=== PATIENT | male | born 1955 | race Caucasian/White ===

== ENCOUNTER 2018-06-12 11:17 | Observation (INO) | payer OTHER ==
[2018-06-12] MEDS ORDERED: METOCLOPRAMIDE HCL INJECTION 10 MG/2 ML VIAL IVPUSH ONE (12:04)
[2018-06-12] MEDS ORDERED: ONDANSETRON *ODT* 4 MG TABLET SL ONE (12:04)
[2018-06-12] MEDS ORDERED: METOCLOPRAMIDE HCL INJECTION 10 MG/2 ML VIAL ONE (12:05)
[2018-06-12] MEDS ORDERED: ONDANSETRON 4 MG/2 ML VIAL ONE (12:05)
[2018-06-12] MEDS ORDERED: ASPIRIN 81 MG CHEWABLE TABLETS PO ONE (12:08)
--- NOTE | 2018-06-12 12:09 | PDOC ---
*Physical Exam - Vital Signs Last Vital Signs Temp Pulse Resp BP Pulse Ox 97.2 F L 66 26 H 144/90 100 06/12/18 11:21 06/12/18 11:21 06/12/18 11:21 06/12/18 11:21 06/12/18 11:21 ED Treatment Course - LABORATORY CBC & Chemistry Diagram: 06/13/18 06:00 06/13/18 06:00 Medical Decision Making - Medical Decision Making 06/15/18 01:31 Mr Valdez presents to the ER with a complaint of headache and vertigo Pt has a h/o nephrolithiasis and chronic back pain. He reports sudden onset of left-sided headache, feeling of numbness in left upper extremity with nausea and dizziness. No visual changes No chest pain Patient denies any weakness to extremities. CT performed - negative Symptoms improved in the ER Call placed to Dr. Wiley Will place on observation for r/o TIA Pt seen by Midlevel Provider under my direct supervision Pt interviewed and examined Ancillary studies reviewed I agree with plan as outlined by Midlevel Provider *DC/Admit/Observation/Transfer Diagnosis at time of Disposition: TIA (transient ischemic attack) - Discharge Dispostion Disposition: HOME Condition at time of disposition: Stable - Referrals - Patient Instructions - Post Discharge Activity
[2018-06-12] MEDS: SODIUM CHLORIDE 1,000 ML IV SCH (12:19)
[2018-06-12] MEDS ORDERED: ASPIRIN 81 MG CHEWABLE TABLETS ONE (12:27)
[2018-06-12 12:29] LABS: BASO % 0.4 % (0-2.0); EOS % 1.7 % (0-4.5); HEMATOCRIT 42.7 % (35.4-49); MCH 29.8 pg (25.7-33.7); MEAN CELL VOLUME 85.1 fl (80-96); MEAN PLT VOLUME 7.6 fl (7.5-11.1); MONO % 7.5 % (3.8-10.2); NEUT % 46.4 % (42.8-82.8); PLATELET COUNT 321 K/MM3 (134-434); RBC 5.01 M/mm3 (4.00-5.60); RDW 13.4 % (11.9-15.9); WHITE BLOOD COUNT 8.8 K/mm3 (4.0-10.0)
--- NOTE | 2018-06-12 12:32 | PDOC ---
History of Present Illness - General Chief Complaint: CVA/TIA Stated Complaint: CHEST PAIN Time Seen by Provider: 06/12/18 11:41 History Source: Patient Exam Limitations: Clinical Condition - History of Present Illness Initial Comments: 06/12/18 10:50 Patient with no past medical history present with complaint of sudden onset of left-sided headache, feeling of numbness in left upper extremity with nausea and dizziness. Patient denies blurry vision, chest pain, shortness of breath. Patient denies any weakness to extremities. Patient denied take anything for symptoms. Denies past medical history of headaches or migraines. Timing/Duration: reports: 4-6 hours Severity: Yes: mild Associated Symptoms: reports: nausea/vomiting, vision changes, weakness. denies : confusion, fatigue, fever/chills, insomnia, loss of consciousness, muscle spasms, paresthesia, ringing in ears, seizures, sleepy, slurred speech, tingling in legs/feet, trouble walking Past History - Past Medical History Allergies/Adverse Reactions: Allergies Allergy/AdvReac Type Severity Reaction Status Date / Time No Known Allergies Allergy Verified 06/12/18 11:20 Home Medications: Ambulatory Orders NK [No Known Home Medication] 06/12/18 Cardiac Disorders: No Hx Myocardial Infarction: No CVA: No COPD: No Psychiatric Problems: No Seizures: No Thyroid Disease: No - Immunization History Immunization Up to Date: Yes - Suicide/Smoking/Psychosocial Hx Smoking History: Never smoked Hx Alcohol Use: No Drug/Substance Use Hx: No Neuro Specific PMHX - Complaint Specific PMHX Glaucoma: No Herniated Disk: No Migraine: No TIA: No Review of Systems - Review of Systems Able to Perform ROS?: Yes Is the patient limited Kyrgyz proficient: No Constitutional: Yes: Weakness. No: Chills, Fever HEENTM: Yes: Symptoms Reported, See HPI, Blurred Vision (left eye). No: Eye Pain, Tearing, Double Vision, Cataracts, Ear Pain, Ocular Prothesis, Ear Discharge, Nose Pain, Nose Congestion, Tinnitus, Nose Bleeding, Hearing Loss, Throat Pain, Throat Swelling, Mouth Pain, Dental Problems, Difficulty Swallowing , Mouth Swelling, Other Respiratory: No: Symptoms reported, See HPI, Cough, Orthopnea, Shortness of Breath, SOB with Exertion, SOB at Rest, Stridor, Wheezing, Productive cough, Hemoptysis, Other Cardiac (ROS): No: Symptoms Reported, See HPI, Chest Pain, Edema, Irregular Heart Rate, Lightheadedness, Palpitations, Syncope, Chest Tightness, Other ABD/GI: Yes: See HPI, Nausea. No: Blood Streaked Bowels, Vomiting, Abdominal cramping Integumentary: No: Symptoms Reported Neurological: Yes: See HPI, Headache, Weakness (left side of face and LUE), Dizziness. No: Numbness, Paresthesia, Seizure, Tingling All Other Systems: Reviewed and Negative *Physical Exam - Vital Signs Last Vital Signs Temp Pulse Resp BP Pulse Ox 97.2 F L 66 26 H 144/90 100 06/12/18 11:21 06/12/18 11:21 06/12/18 11:21 06/12/18 11:21 06/12/18 11:21 - Physical Exam Comments: 06/12/18 13:52 GENERAL: Well developed, well nourished. Awake and alert. No acute distress. HEENT: Normocephalic, atraumatic. PERRLA, EOMI. No conjunctival pallor. Sclera are non-icteric. Moist mucous membranes. Oropharynx is clear. NECK: Supple. Full ROM. CARDIOVASCULAR: Regular rate and rhythm. No murmurs, rubs, or gallops. Distal pulses are 2+ and symmetric. PULMONARY: No evidence of respiratory distress. Lungs clear to auscultation bilaterally. No wheezing, rales or rhonchi. ABDOMINAL: Soft. Non-tender. Non-distended. No rebound or guarding. No organomegaly. Normoactive bowel sounds. MUSCULOSKELETAL Normal range of motion at all joints. EXTREMITIES: No cyanosis. No clubbing. No edema. No calf tenderness. SKIN: Warm and dry. Normal capillary refill. No rashes. No jaundice. NEUROLOGICAL: Alert, awake, appropriate. Gait is normal without ataxia. Normal facial symmetry. No neuro deficit on exam. No facial drooling. PSYCHIATRIC: Cooperative. Good eye contact. Appropriate mood General Appearance: Yes: Nourished, Appropriately Dressed, Mild Distress NIH Stroke Scale - Initial Evaluation Level of consciousness: Alert Ask patient the month and their age: Answers both correctly Ask patient to open & close eyes; make fist and let go: Obeys both correctly Best gaze (horizontal eye movement): Normal Visual field testing: No visual field loss Facial paresis (Show teeth/raise eyebrows/close eyes tight): Normal symmetrical movement Motor Function: Left Arm: Normal Motor Function: Right Arm: Normal (extends arm 90 (or 45) degrees for 10 seconds without drift Motor Function: Left Leg: Normal (extends leg 30 degrees for 5 seconds without drift) Motor Function: Right Leg: Normal (extends leg 30 degrees for 5 seconds without drift) Limb Ataxia: No ataxia Sensory(Use pinprick test arms,legs,trunk,face/side to side): Normal Best language (Describe picture, name items, read sentences): No Aphasia Dysarthria (read several words): Normal articulation Extinction and Inattention: No abnormality - Total Score NIH Stroke Scale Score: 0 tPA Exclusion Checklist 0-3hr - Thrombolytic Therapy Candidate Is the patient eligible for Thrombolytic Therapy?: Yes - Exclusion Criteria 0-3hr SBP greater than 185 or DBP greater than 110mmHg despite tx: No Recent IC/spinal surgery,head trauma or stroke w/in last 3mo: No Hx of previous IC hemorrhage, IC neoplasm, AVM or aneurysm: No Active internal bleeding: No Blding diathesis(low plt ct, inc PTT,INR>1.7 or use of NOAC): No Symptoms suggest subarachnoid hemorrhage: No CT demonstrates multilobar infarct(>1/3 cerebral hemiphere): No Arterial puncture at noncompressible site in previous 7 days: No Blood glucose concentration less than 50mg/dL (2.7mmol/L): No - Relative Exclusion Criteria 0-3h Life expectancy <1yr/severe co-morbid illness/Y[employer] on admit: No : No Patient/family refused: No Rapid improvement: Yes Stroke severity too mild: Yes Recent acute NH (w/in previous 3 months): No Seizure at onset with postictal residual neuro impairments: No Major surgery or serious trauma w/in previous 14 days: No Recent GI or hemorrhage (w/in previous 21 days): No TIA Risk Factors - ABCD Score Age: Age = or > 60 Duration: TIA duration = or > 60min Diabetes: No Moderate Sedation - Procedure Monitoring Vital Signs: Procedure Monitoring Vital Signs Temperature 97.2 F L 06/12/18 11:21 Pulse Rate 66 06/12/18 11:21 Respiratory Rate 26 H 06/12/18 11:21 Blood Pressure 144/90 06/12/18 11:21 O2 Sat by Pulse Oximetry (%) 100 06/12/18 11:21 Heart Score/ECG Review - History History: Slightly suspicious Critical Care Time/MDM Note - Medical Decision Making Note: 06/12/18 13:54 Patient with no past medical history present with complaint of TIAs symptoms since this morning with feeling of left-sided numbness and headache with nausea vomiting. Clinical exam significant for 2 episodes of vomiting on presentation. Normal neuro exam with no facial asymmetry all evidence of stroke on exam. Head CT shows no acute infarct or hemorrhage. EKG shows normal sinus rhythm. Chemistry labs shows no acute pathology, CBC and cardiac labs normal. Neurology Dr. Wiley consulted who requested do head MRI given no past medical history of sudden onset of symptoms. Patient to be admitted for observation as per Neurologist Dr. Wiley 06/12/18 14:53 medicine consulted with agrees to admit patient for observation and will come done to see patient. Patient admitted to Tele observation as per medicine *DC/Admit/Observation/Transfer Diagnosis at time of Disposition: TIA (transient ischemic attack) - Discharge Dispostion Condition at time of disposition: Stable Decision to Admit order: Yes Decision to Admit order Date/Time: 06/12/18 13:57 Admit for obs as per Dr. Wiley - Referrals - Patient Instructions - Post Discharge Activity
--- NOTE | 2018-06-12 12:52 | EKG ---
Test Reason : Blood Pressure : / mmHG Vent. Rate : 066 BPM Atrial Rate : 066 BPM P-R Int : 140 ms QRS Dur : 082 ms QT Int : 426 ms P-R-T Axes : 021 -28 037 degrees QTc Int : 446 ms NORMAL SINUS RHYTHM NORMAL ECG NO PREVIOUS ECGS AVAILABLE Confirmed by KASI VELA, GUZMAN ([id number]) on 06/12/2018 12:52:26 PM Referred By: Confirmed By:GUZMAN VILLASEÑOR MD
[2018-06-12 12:57] LABS: INR 0.96 (0.83-1.09); PROTHROMBIN TIME (PATIENT) 11.3 SEC (9.7-13.0)
[2018-06-12 12:58] LABS: ALK PHOS 70 U/L (45-117); ANION GAP 8 MMOL/L (8-16); BILIRUBIN,TOTAL 0.4 mg/dL (0.2-1); BLOOD UREA NITROGEN 15 mg/dL (7-18); CALCIUM 9.3 mg/dL (8.5-10.1); CHLORIDE 106 mmol/L (98-107); CHOLESTEROL 270 mg/dL (50-200); CO2 24 mmol/L (21-32); CREATININE 0.7 mg/dL (0.55-1.3); GLUCOSE,RANDOM 89 mg/dL (74-106); HDL CHOLESTEROL 40 mg/dL (40-60); POTASSIUM 3.6 mmol/L (3.5-5.1); SGOT/AST 18 U/L (15-37); SGPT/ALT 28 U/L (13-61); SODIUM 138 mmol/L (136-145); TOT PROT 7.3 g/dl (6.4-8.2); TRIGLYCERIDES 208 mg/dL (0-150)
[2018-06-12 13:00] LABS: ACTIVATED PTT 30.4 SECONDS (25.2-36.5)
[2018-06-12 13:59] LABS: URINE APPEARANCE CLOUDY; URINE BILIRUBIN NEGATIVE (<2.0 mg/dL); URINE COLOR YELLOW; URINE GLUCOSE (UA) NEGATIVE (NEGATIVE); URINE KETONE NEGATIVE (NEGATIVE); URINE LEUK ESTERASE NEGATIVE (NEGATIVE); URINE NITRITE NEGATIVE (NEGATIVE); URINE PROTEIN NEGATIVE (NEGATIVE); URINE UROBILINOGEN NEGATIVE mg/dL (0.2-1.0)
--- NOTE | 2018-06-12 16:08 | PN ---
Teaching Attending Note Name of Resident: Darshana Adams ATTENDING PHYSICIAN STATEMENT I saw and evaluated the patient. I reviewed the resident's note and discussed the case with the resident. I agree with the resident's findings and plan as documented. SUBJECTIVE: Patient is a 63yo male with PMHx of nephrolithiasis, chronic back pain, who presents to the ED c/o generalized TRUJILLO, and L face and LUE numbness/tingling that started this AM. No fever or chills, no shortness of breath. OBJECTIVE: Vital Signs Temperature 97.2 F L 06/12/18 11:21 Pulse Rate 66 06/12/18 11:21 Respiratory Rate 26 H 06/12/18 11:21 Blood Pressure 144/90 06/12/18 11:21 O2 Sat by Pulse Oximetry (%) 100 06/12/18 11:21 GENERAL: Pleasant. Awake, alert, and fully oriented, in no acute distress. HEAD: Normal with no signs of trauma. EYES: Pupils equal, round and reactive to light, extraocular movements intact, sclera anicteric, conjunctiva clear. EARS, NOSE, THROAT: Ears normal, oropharynx clear without exudates. Moist mucous membranes. NECK: Normal range of motion, supple LUNGS: Breath sounds equal, clear to auscultation bilaterally. No wheezes, and no crackles. No accessory muscle use. HEART: Regular rate and rhythm, normal S1 and S2 without murmur, rub or gallop. ABDOMEN: Soft, nontender, not distended, normoactive bowel sounds. +reducible umbilical hernia MUSCULOSKELETAL: Normal range of motion at all joints. No bony deformities or tenderness. No CVA tenderness. EXTREMITIES: 2+ radial pulses, warm, well-perfused. No cyanosis. No clubbing. No peripheral edema. NEUROLOGICAL: Cranial nerves II-XII intact. Normal speech. Normal gait. 5/5 motor strength UE, LE. sensation intact PSYCHIATRIC: Cooperative. Good eye contact. SKIN: Warm, dry, normal turgor CBCD WBC 8.8 K/mm3 (4.0-10.0) 06/12/18 12:14 RBC 5.01 M/mm3 (4.00-5.60) 06/12/18 12:14 Hgb 15.0 GM/dL (11.7-16.9) 06/12/18 12:14 Hct 42.7 % (35.4-49) 06/12/18 12:14 MCV 85.1 fl (80-96) 06/12/18 12:14 MCHC 35.0 g/dl (32.0-35.9) 06/12/18 12:14 RDW 13.4 % (11.9-15.9) 06/12/18 12:14 Plt Count 321 K/MM3 (134-434) 06/12/18 12:14 MPV 7.6 fl (7.5-11.1) 06/12/18 12:14 CMP Sodium 138 mmol/L (136-145) 06/12/18 12:14 Potassium 3.6 mmol/L (3.5-5.1) 06/12/18 12:14 Chloride 106 mmol/L (98-107) 06/12/18 12:14 Carbon Dioxide 24 mmol/L (21-32) 06/12/18 12:14 Anion Gap 8 MMOL/L (8-16) 06/12/18 12:14 BUN 15 mg/dL (7-18) 06/12/18 12:14 Creatinine 0.7 mg/dL (0.55-1.3) 06/12/18 12:14 Creat Clearance w eGFR > 60 (>60) 06/12/18 12:14 Random Glucose 89 mg/dL (74-106) 06/12/18 12:14 Calcium 9.3 mg/dL (8.5-10.1) 06/12/18 12:14 Total Bilirubin 0.4 mg/dL (0.2-1) 06/12/18 12:14 AST 18 U/L (15-37) 06/12/18 12:14 ALT 28 U/L (13-61) 06/12/18 12:14 Alkaline Phosphatase 70 U/L (45-117) 06/12/18 12:14 Total Protein 7.3 g/dl (6.4-8.2) 06/12/18 12:14 Albumin 4.0 g/dl (3.4-5.0) 06/12/18 12:14 CARDIAC ENZYMES Creatine Kinase 104 U/L (26-308) 06/12/18 12:14 Troponin I < 0.02 ng/ml (0.00-0.05) 06/12/18 12:14 Current Medications Generic Name Dose Route Start Last Admin Trade Name Veronica PRN Reason Stop Dose Admin Sodium Chloride 1,000 mls @ 42 mls/hr 06/12/18 11:45 06/12/18 12:19 Normal Saline - IV 42 mls/hr ASDIR GALEN Administration Home Medications Medication Instructions Recorded NK [No Known Home Medication] 06/12/18 CTH: without abnormality - no bleed or infarct EKG: NSR, rate 66bpm, no St-T wave changes. qtc 446ms ASSESSMENT AND PLAN: 63 y/o M with PMH nephrolithiasis, chronic back pain, who presents to the ED c/ o generalized TRUJILLO, and L face and LUE numbness/tingling that started this AM. As per pt, his sx started at 9:30AM when he was at work. States that he was walking up the driveway at his office for a coffee break when he felt dizzy. #Acute TIA r/o CVA :will start asa 162mg qd, lipitor 80mg qd , symptoms resolved completely , ECHO, carotids, brain MRI, neuro consult. # HLD: on Lipitor :cholesterol/fat controlled diet # Dizziness: IVF , most likely due to diarrhea # Diarrhea : IVF , monitor DVT: early ambulation, SCD's
--- NOTE | 2018-06-12 16:55 | HP ---
CHIEF COMPLAINT: TRUJILLO, L face, LUE numbness/tingling PCP: Dr. Tucker HISTORY OF PRESENT ILLNESS: 63 y/o M with PMH nephrolithiasis, chronic back pain, who presents to the ED c/ o generalized TRUJILLO, and L face and LUE numbness/tingling that started this AM. As per pt, his sx started at 9:30AM when he was at work. States that he was walking up the driveway at his office for a coffee break when he felt increasingly dizzy. Was unable to keep his balance and began to feel nauseated. During this time, he endorsed generalized TRUJILLO, and L face and LUE numbness and tingling as well. For this reason, he came to the ED for evaluation. Endorses recent colonoscopy 3 weeks ago where he had 7 polyps removed. Also with few episodes of loose BM's (without blood), as well as multiple eps of visual issues where his sight became blurry for 1-2 mins each. Otherwise, without fever , chills, SOB, chest pain or pressure, or changes in urinary function. 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 unable to quantify past amount of drinks Drugs: denies Family History: mother - breast CA, father- prostate CA, brother - testic CA, sister- brain tumor, father - afib Allergies No Known Allergies Allergy (Verified 06/12/18 11:20) HOME MEDICATIONS: Home Medications Medication Instructions Recorded NK [No Known Home Medication] 06/12/18 REVIEW OF SYSTEMS CONSTITUTIONAL: Absent: fever, chills, diaphoresis, generalized weakness, malaise, loss of appetite, weight change HEENT: Absent: rhinorrhea, nasal congestion, throat pain, throat swelling, difficulty swallowing, mouth swelling, ear pain, eye pain, visual changes CARDIOVASCULAR: Absent: chest pain, syncope, palpitations, irregular heart rate, lightheadedness , peripheral edema RESPIRATORY: Absent: cough, shortness of breath, dyspnea with exertion, orthopnea, wheezing, stridor, hemoptysis GASTROINTESTINAL: Absent: abdominal pain, abdominal distension, nausea, vomiting, diarrhea, constipation, melena, hematochezia GENITOURINARY: Absent: dysuria, frequency, urgency, hesitancy, hematuria, flank pain, genital pain MUSCULOSKELETAL: Absent: myalgia, arthralgia, joint swelling, back pain, neck pain SKIN: Absent: rash, itching, pallor HEMATOLOGIC/IMMUNOLOGIC: Absent: easy bleeding, easy bruising, lymphadenopathy, frequent infections ENDOCRINE: Absent: unexplained weight gain, unexplained weight loss, heat intolerance, cold intolerance NEUROLOGIC: +LUE numbness/tingling, TRUJILLO Absent: headache, focal weakness or paresthesias, dizziness, unsteady gait, seizure, mental status changes, bladder or bowel incontinence PSYCHIATRIC: Absent: anxiety, depression, suicidal or homicidal ideation, hallucinations. PHYSICAL EXAMINATION Vital Signs - 24 hr 06/12/18 11:21 Temperature 97.2 F L Pulse Rate 66 Respiratory 26 H Rate Blood Pressure 144/90 O2 Sat by Pulse 100 Oximetry (%) GENERAL: Pleasant. Awake, alert, and fully oriented, in no acute distress. HEAD: Normal with no signs of trauma. EYES: Pupils equal, round and reactive to light, extraocular movements intact, sclera anicteric, conjunctiva clear. EARS, NOSE, THROAT: Ears normal, nares patent, oropharynx clear without exudates. Moist mucous membranes. NECK: Normal range of motion, supple LUNGS: Breath sounds equal, clear to auscultation bilaterally. No wheezes, and no crackles. No accessory muscle use. HEART: Regular rate and rhythm, normal S1 and S2 without murmur, rub or gallop. ABDOMEN: Soft, nontender, not distended, normoactive bowel sounds. +reducible umbilical hernia MUSCULOSKELETAL: Normal range of motion at all joints. No bony deformities or tenderness. No CVA tenderness. UPPER EXTREMITIES: 2+ radial pulses, warm, well-perfused. No cyanosis. No clubbing. No peripheral edema. LOWER EXTREMITIES: 2+ pt pulses, warm, well-perfused. No calf tenderness. No peripheral edema. NEUROLOGICAL: Cranial nerves II-XII intact. Normal speech. Normal gait. 5/5 motor strength UE, LE. sensation intact throughout. 2+ bicep reflexes PSYCHIATRIC: Cooperative. Good eye contact. SKIN: Warm, dry, normal turgor Laboratory Results - last 24 hr 06/12/18 06/12/18 06/12/18 12:14 12:14 12:14 WBC 8.8 RBC 5.01 Hgb 15.0 Hct 42.7 MCV 85.1 MCH 29.8 MCHC 35.0 RDW 13.4 Plt Count 321 MPV 7.6 Absolute Neuts (auto) 4.1 Neutrophils % 46.4 Lymphocytes % 44.0 H Monocytes % 7.5 Eosinophils % 1.7 Basophils % 0.4 Nucleated RBC % 0 PT with INR 11.30 INR 0.96 PTT (Actin FS) 30.4 Sodium 138 Potassium 3.6 Chloride 106 Carbon Dioxide 24 Anion Gap 8 BUN 15 Creatinine 0.7 Creat Clearance w eGFR > 60 Random Glucose 89 Calcium 9.3 Total Bilirubin 0.4 AST 18 ALT 28 Alkaline Phosphatase 70 Creatine Kinase 104 Troponin I < 0.02 Total Protein 7.3 Albumin 4.0 Triglycerides 208 H Cholesterol 270 H Total LDL Cholesterol 185 H HDL Cholesterol 40 Urine Color CTH: without abnormality - no bleed or infarct EKG: NSR, rate 66bpm, no St-T wave changes. qtc 446ms ASSESSMENT/PLAN: 63 y/o M with PMH nephrolithiasis, chronic back pain, who presents to the ED c/ o generalized TRUJILLO, and L face and LUE numbness/tingling that started this AM. #R/o CVA -sx have since resolved; no longer with LUE numbness/tingling -will start asa 162mg qd, lipitor 80mg qd -f/u ECHO, carotids, brain MRI -neuro on board: Dr. Wiley -able to tolerate PO, cholesterol controlled diet -PT -tele monitoring #HLD -newly diagnosed -started on lipitor #Diarrhea -may be 2/2 gastrointestinal virus or 2/2 recent colonoscopy -continue to monitor -encourage PO intake as tolerated #F/E/N PO intake continue to follow lytes cholesterol/fat controlled diet #PPX DVT: early ambulation, SCD's #Dispo obs- tele if ECHO, carotids, MRI (-) can likely be d/c tomorrow with neuro f/u Visit type - Emergency Visit Emergency Visit: Yes ED Registration Date: 06/12/18 Care time: The patient presented to the Emergency Department on the above date and was hospitalized for further evaluation of their emergent condition. - New Patient This patient is new to me today: Yes Date on this admission: 06/12/18 - Critical Care Critical Care patient: No
[2018-06-12 18:17] VITALS: BMI 29.5
--- NOTE | 2018-06-12 21:38 | CON.NEURO ---
Consult - Alcohol/Substance Use Hx Alcohol Use: No - Smoking History Smoking history: Never smoked Home Medications - Allergies Allergies/Adverse Reactions: Allergies Allergy/AdvReac Type Severity Reaction Status Date / Time No Known Allergies Allergy Verified 06/12/18 11:20 - Home Medications Home Medications: Ambulatory Orders NK [No Known Home Medication] 06/12/18 Physical Exam-Neuro Vital Signs: Vital Signs Temperature 98.3 F 06/12/18 20:02 Pulse Rate 68 06/12/18 20:02 Respiratory Rate 18 06/12/18 21:00 Blood Pressure 138/90 06/12/18 20:02 O2 Sat by Pulse Oximetry (%) 98 06/12/18 21:00 Labs: CBC, BMP 06/12/18 12:14 06/12/18 12:14 INR, PTT INR 0.96 (0.83-1.09) 06/12/18 12:14 Assessment/Plan cc Left sided numbness , arm and face HPI 63 year ol dmale history of nephrolithiasis, low back pain. He do get headache frequently and takes ibuprofen . Paitne thas left face , and upper extremity numbness. Patient also feel dizzy and he feel nasuea and dysbalance. maria isabelnet never had stroke or cad. He denies smoking , he works at [employer]. Patient had mri of brain done and looks ok for me . He is feeling unsteady on moving his head . 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 unable to quantify past amount of drinks Drugs: denies Family History: mother - breast CA, father- prostate CA, brother - testic CA, sister- brain tumor, father - afib Allergies No Known Allergies Allergy (Verified 06/12/18 11:20) HOME MEDICATIONS: Home Medications Medication Instructions Recorded NK [No Known Home Medication] 06/12/18 ROS noncontirbutory NEUROLOGICAL EXAMINATION Alert oriented x 3 CN all intac,t eomi, pupils reactive no face asymmetry Moving all ext sensation is normal in both upper and lower extremity ct head is normal mri of mri seems unremarkable and offical report pending Assessment/Plan:Most likley tia, symptom resolved, and on aspirin and statin Plan: sugges to continue apsirin and statin -follow up on mri of brain and carotid utrasound - Stroke education was discussed Thanking you so much Sherman Wiley md
[2018-06-12] MEDS ORDERED: ATORVASTATIN CA 80 MG TABLET (FP) PO SCH (22:00)
[2018-06-13 07:34] LABS: BASO % 0.1 % (0-2.0); EOS % 1.9 % (0-4.5); LYMPH % 35.4 % (8-40); MCHC 34.9 g/dl (32.0-35.9); MEAN PLT VOLUME 7.8 fl (7.5-11.1); MONO % 7.5 % (3.8-10.2); NEUT % 55.1 % (42.8-82.8); PLATELET COUNT 289 K/MM3 (134-434); RBC 4.65 M/mm3 (4.00-5.60); WHITE BLOOD COUNT 7.1 K/mm3 (4.0-10.0)
[2018-06-13 08:03] LABS: ANION GAP 5 MMOL/L (8-16); BLOOD UREA NITROGEN 16 mg/dL (7-18); CALCIUM 8.3 mg/dL (8.5-10.1); CHLORIDE 109 mmol/L (98-107); CO2 27 mmol/L (21-32); CREATININE 0.8 mg/dL (0.55-1.3); GLUCOSE,RANDOM 93 mg/dL (74-106); MAGNESIUM 1.9 mg/dL (1.8-2.4); PHOSPHOROUS 2.9 mg/dL (2.5-4.9); POTASSIUM 4.2 mmol/L (3.5-5.1); SODIUM 141 mmol/L (136-145)
[2018-06-13] MEDS ORDERED: ASPIRIN 81 MG CHEWABLE TABLETS PO SCH (10:00)
[2018-06-13] MEDS: SODIUM CHLORIDE 1,000 ML IV SCH (11:17)
--- NOTE | 2018-06-13 11:47 | CONSULT ---
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 Became very dizzy, leaning from side to side, nauseated, fingers tingly. He was tiold his speech was slurred. He said it resolved after a few hours. History Source: Patient Limitations to Obtaining History: No Limitations - Smoking History Smoking history: Never smoked - Alcohol/Substance Use Hx Alcohol Use: No History - Admission Reason For Visit: TIA - Diagnostics X-ray: Report Reviewed CT Scan: Report Reviewed MRI: Report Reviewed - General Mental Status: Alert and Oriented, Awake and Alert, Able to Follow Commands Attention: Intact Ability to Follow Directions: Excellent Head/Neck Control: WFL - Hearing Hearing: Normal Speech Evaluation - Communication Primary Language: PASHTO Communication: Yes: Within Normal Limits Oral Expression Ability: Yes: No Impairment - Speech Production Able to Make Needs Known: Yes: WNL Intelligibility: Yes: WNL - Speech Characteristics Voice Loudness: Normal Voice Pitch: Yes: Normal Voice Phonatory-based Quality: Yes: Normal Speech Pattern: Normal Speech Clarity: < 100% Nasal Resonance: Normal Articulation: Yes: Precise - Language/Auditory Comprehension Follows: Yes: 2 Stage Simple Commands - Language/Verbal Expression Able to Respond to Simple Queries: Yes: WNL Able to Communicate Wants and Needs: Yes: WNL Functional Communication Status: Yes: WNL - Memory/Perception penitentiary Memory: Yes: WNL Short Term Memory: Yes: WNL - Swallow Evaluation/Bedside Assessment Current Nutritional Intake: Regular, Thin Liquids Oral Secretions: Yes: WFL Dentition: Yes: Adequate Facial Symmetry at Rest: Symmetrical Facial Symmetry on Retraction: Symmetrical Sensation: Normal Against Resistance Opening: Normal Against Resistance Closing: Normal Pucker Lips: Normal Smile: Normal Lingual Movement: Normal, Symmetric Lingual Speed of Movement: Normal Lingual Movement Strgth Against Opposition: Normal Lingual Movement Characteristics: Normal Velopharyngeal Movement: Normal Laryngeal Elevation: WFL Laryngeal Movement: Able to Palpate Rate of Intake: WFL Bolus Size: WFL Labial Seal: WFL Chewing: WFL Oral Prep Time: WFL A-P Transit: WFL Pocketing: None Timing of Swallow: WFL Coughing/Throat Clear: No Change in Voice: No Recommendations - Speech Evaluation, Impression/Plan Impression: Speech,swallow,language,cognition intact - Dysphagia Impressions/Plan Swallowing Skills: WFL Dysphagia Impressions: No Impairment *Silent aspiration: cannot be R/O at bedside - Recommendations Diet Consistency: Regular Medication Administration: Whole with water Liquids: Thin Liquids
--- NOTE | 2018-06-13 11:49 | ECHO ---
Name: MCDANIEL, LISA Exam:Adult Echocardiogram Study Date: 06/13/2018 09:10 AM Age: 63 yrs Reason For Study: r/o stroke Height: 71 in Weight: 200 lb BSA: 2.1 m2 MMode/2D Measurements & Calculations IVSd: 1.0 cm Ao root diam: 3.1 cm LVIDd: 4.1 cm LA dimension: 3.1 cm LVIDs: 2.7 cm LVPWd: 1.0 cm LVPWs: 1.9 cm EDV(Teich): 73.2 ml ESV(Teich): 27.4 ml LVOT diam: 1.9 cm RV S Aris: 15.1 cm/sec Doppler Measurements & Calculations MV E max aris: 76.6 cm/sec Ao V2 max: 105.0 cm/sec MV A max aris: 57.7 cm/sec Ao max P.0 mmHg MV E/A: 1.3 Ao V2 mean: 89.2 cm/sec MV dec time: 0.20 sec Ao mean P.6 mmHg Ao V2 VTI: 27.5 cm LEXI(I,D): 1.8 cm2 LEXI(V,D): 2.3 cm2 LV V1 max P.8 mmHg SV(LVOT): 50.5 ml LV V1 mean P.6 mmHg LV V1 max: 84.4 cm/sec LV V1 mean: 58.0 cm/sec LV V1 VTI: 18.0 cm TR max aris: 253.8 cm/sec PA V2 max: 135.7 cm/sec TR max P.8 mmHg PA max P.4 mmHg Med Peak E' Aris: 8.6 cm/sec Med E/e': 8.9 Lat Peak E' Aris: 11.5 cm/sec Lat E/e': 6.6 Procedure A complete two-dimensional transthoracic echocardiogram was performed (2D, M-mode, Doppler and color flow Doppler). Left Ventricle The left ventricular size, thickness and function are normal. The left ventricular ejection fraction is normal. Ejection Fraction = 60-65%. The left ventricular wall motion is normal. Right Ventricle The right ventricle is normal in size and function. Atria Normal left and right atrial size and function. Mitral Valve There is trace mitral regurgitation. Tricuspid Valve There is trace tricuspid regurgitation. Right ventricular systolic pressure is normal. Aortic Valve No hemodynamically significant valvular aortic stenosis. No aortic regurgitation is present. Pulmonic Valve There is no pulmonic valvular regurgitation. Great Vessels The aortic root is normal size. Pericardium/Pleura There is no pericardial effusion. Interpretation Summary The left ventricular size, thickness and function are normal The right ventricle is normal in size and function. There is trace mitral regurgitation. There is trace tricuspid regurgitation. MD Ruddy Limon 06/13/2018 11:48 AM
--- NOTE | 2018-06-13 14:03 | DS ---
Physical Exam: SUBJECTIVE: Patient seen and examined OBJECTIVE: Vital Signs Period Temp Pulse Resp BP Sys/Rizvi Pulse Ox Last 24 Hr 97.8 F-98.3 F 59-69 18-18 120-138/71-90 98-98 PHYSICAL EXAM GENERAL: The patient is awake, alert, and fully oriented, in no acute distress. HEAD: Normal with no signs of trauma. EYES: PERRL, extraocular movements intact, sclera anicteric, conjunctiva clear. ENT: Ears normal, nares patent, oropharynx clear without exudates, moist mucous membranes. NECK: Trachea midline, full range of motion, supple. LUNGS: Breath sounds equal, clear to auscultation bilaterally, no wheezes, no crackles, no accessory muscle use. HEART: Regular rate and rhythm, S1, S2 without murmur, rub or gallop. ABDOMEN: Soft, nontender, nondistended, normoactive bowel sounds, no guarding, no rebound, no hepatosplenomegaly, no masses. EXTREMITIES: 2+ pulses, warm, well-perfused, no edema. NEUROLOGICAL: Cranial nerves II through XII grossly intact. Normal speech, gait not observed. PSYCH: Normal mood, normal affect. SKIN: Warm, dry, normal turgor, no rashes or lesions noted. LABS Laboratory Results - last 24 hr 06/12/18 06/12/18 06/12/18 12:45 17:35 18:30 WBC RBC Hgb Hct MCV MCH MCHC RDW Plt Count MPV Absolute Neuts (auto) Neutrophils % Lymphocytes % Monocytes % Eosinophils % Basophils % Nucleated RBC % Sodium Potassium Chloride Carbon Dioxide Anion Gap BUN Creatinine Creat Clearance w eGFR POC Glucometer 97 Random Glucose Hemoglobin A1c % Calcium Phosphorus Magnesium Urine Color Yellow Urine Appearance Cloudy Urine pH 8.0 Ur Specific Huffman 1.020 Urine Protein Negative Urine Glucose (UA) Negative Urine Ketones Negative Urine Blood Negative Urine Nitrite Negative Urine Bilirubin Negative Urine Urobilinogen Negative Ur Leukocyte Esterase Negative Blood Type O POSITIVE Antibody Screen Negative 06/12/18 06/13/18 06/13/18 18:30 06:00 06:00 WBC 7.1 RBC 4.65 Hgb 14.0 Hct 40.0 MCV 86.0 MCH 30.0 MCHC 34.9 RDW 14.0 Plt Count 289 MPV 7.8 Absolute Neuts (auto) 3.9 Neutrophils % 55.1 Lymphocytes % 35.4 Monocytes % 7.5 Eosinophils % 1.9 Basophils % 0.1 Nucleated RBC % 0 Sodium 141 Potassium 4.2 Chloride 109 H Carbon Dioxide 27 Anion Gap 5 L BUN 16 Creatinine 0.8 Creat Clearance w eGFR > 60 POC Glucometer Random Glucose 93 Hemoglobin A1c % 5.4 Calcium 8.3 L Phosphorus 2.9 Magnesium 1.9 Urine Color Urine Appearance Urine pH Ur Specific Huffman Urine Protein Urine Glucose (UA) Urine Ketones Urine Blood Urine Nitrite Urine Bilirubin Urine Urobilinogen Ur Leukocyte Esterase Blood Type Antibody Screen HOSPITAL COURSE: Date of Admission:06/12/18 63 y/o M with PMH nephrolithiasis, chronic back pain, who presents to the ED c/ o generalized TRUJILLO, and L face and LUE numbness/tingling that started this AM. As per pt, his sx started at 9:30AM when he was at work. States that he was walking up the driveway at his office for a coffee break when he felt increasingly dizzy. Was unable to keep his balance and began to feel nauseated. During this time, he endorsed generalized TRUJILLO, and L face and LUE numbness and tingling as well. For this reason, he came to the ED for evaluation,. echo/head CT were normal as well as brain MRI and dopplers. pateint was seeen by neuro who started him on high dose statin and aspirirn. patients symptoms resolved and he was d/c home with neuro outpatient followup Date of Discharge: 06/13/18 Minutes to complete discharge: 39 Discharge Summary Reason For Visit: TIA Condition: Stable - Instructions Diet, Activity, Other Instructions: You came to the hospital with complaints of numbness/tingling on your face and arms. You were evaluated by a neurologist. We did imaging of your brain/heart and carotid arteries which were all normal. Your ultrasound of your heart showed that everything was normal. You were stable to be discharged home. Please continue taking the following medications: -Lipitor 80mg daily for your cholesterol -Aspirin 162mg daily Please follow up with Dr. Tucker within one week Please follow up with the neurologist, Dr. Wiley within one week *if you begin to experience any chest pains, shortness of breath, numbness/ tingling , slurred speech please return to the emergency room immediately Referrals: Dayron Tucker [Other] - 1 Week Sherman Wiley MD [Staff Physician] - 1 Week Disposition: HOME - Home Medications Comprehensive Discharge Medication List: Ambulatory Orders Aspirin [ASA -] 162 mg PO DAILY #30 tab.chew 06/13/18 Atorvastatin Ca [Lipitor] 80 mg PO HS #30 tablet 06/13/18 Problem List - Problems (1) TIA (transient ischemic attack) Code(s): G45.9 - TRANSIENT CEREBRAL ISCHEMIC ATTACK, UNSPECIFIED This patient is new to me today: Yes Date on this admission: 06/13/18 Emergency Visit: Yes ED Registration Date: 06/12/18 Care time: The patient presented to the Emergency Department on the above date and was hospitalized for further evaluation of their emergent condition. Critical Care patient: No - Discharge Referral Referred to [facility] Med P.C.: No
[2018-06-13 14:43] VITALS: BP 146/79; PULSE 74; TEMP 98.5
--- NOTE | 2018-06-13 19:28 | PN ---
Teaching Attending Note Name of Resident: Genia Elizabeth ATTENDING PHYSICIAN STATEMENT I saw and evaluated the patient. I reviewed the resident's note and discussed the case with the resident. I agree with the resident's findings and plan as documented. SUBJECTIVE: Patient is feeling better with no acute distress, no further numbness and tingling. OBJECTIVE: Vital Signs Temperature 98.5 F 06/13/18 14:00 Pulse Rate 74 06/13/18 14:00 Respiratory Rate 20 06/13/18 14:00 Blood Pressure 146/79 06/13/18 14:00 O2 Sat by Pulse Oximetry (%) 98 06/13/18 08:24 GENERAL: Pleasant. Awake, alert, and fully oriented, in no acute distress. HEAD: Normal with no signs of trauma. EYES: Pupils equal, round and reactive to light, extraocular movements intact, sclera anicteric, conjunctiva clear. EARS, NOSE, THROAT: Ears normal, oropharynx clear without exudates. Moist mucous membranes. NECK: Normal range of motion, supple LUNGS: Breath sounds equal, clear to auscultation bilaterally. No wheezes, and no crackles. No accessory muscle use. HEART: Regular rate and rhythm, normal S1 and S2 without murmur, rub or gallop. ABDOMEN: Soft, nontender, not distended, normoactive bowel sounds. +reducible umbilical hernia MUSCULOSKELETAL: Normal range of motion at all joints. No bony deformities or tenderness. No CVA tenderness. EXTREMITIES: 2+ radial pulses, warm, well-perfused. No cyanosis. No clubbing. No peripheral edema. NEUROLOGICAL: Cranial nerves II-XII intact. Normal speech. Normal gait. 5/5 motor strength UE, LE. sensation intact throughout. PSYCHIATRIC: Cooperative. Good eye contact. SKIN: Warm, dry, normal turgor CBCD WBC 7.1 K/mm3 (4.0-10.0) 06/13/18 06:00 RBC 4.65 M/mm3 (4.00-5.60) 06/13/18 06:00 Hgb 14.0 GM/dL (11.7-16.9) 06/13/18 06:00 Hct 40.0 % (35.4-49) 06/13/18 06:00 MCV 86.0 fl (80-96) 06/13/18 06:00 MCHC 34.9 g/dl (32.0-35.9) 06/13/18 06:00 RDW 14.0 % (11.9-15.9) 06/13/18 06:00 Plt Count 289 K/MM3 (134-434) 06/13/18 06:00 MPV 7.8 fl (7.5-11.1) 06/13/18 06:00 CMP Sodium 141 mmol/L (136-145) 06/13/18 06:00 Potassium 4.2 mmol/L (3.5-5.1) 06/13/18 06:00 Chloride 109 mmol/L (98-107) H 06/13/18 06:00 Carbon Dioxide 27 mmol/L (21-32) 06/13/18 06:00 Anion Gap 5 MMOL/L (8-16) L 06/13/18 06:00 BUN 16 mg/dL (7-18) 06/13/18 06:00 Creatinine 0.8 mg/dL (0.55-1.3) 06/13/18 06:00 Creat Clearance w eGFR > 60 (>60) 06/13/18 06:00 Random Glucose 93 mg/dL (74-106) 06/13/18 06:00 Calcium 8.3 mg/dL (8.5-10.1) L 06/13/18 06:00 Total Bilirubin 0.4 mg/dL (0.2-1) 06/12/18 12:14 AST 18 U/L (15-37) 06/12/18 12:14 ALT 28 U/L (13-61) 06/12/18 12:14 Alkaline Phosphatase 70 U/L (45-117) 06/12/18 12:14 Total Protein 7.3 g/dl (6.4-8.2) 06/12/18 12:14 Albumin 4.0 g/dl (3.4-5.0) 06/12/18 12:14 CARDIAC ENZYMES Creatine Kinase 104 U/L (26-308) 06/12/18 12:14 Troponin I < 0.02 ng/ml (0.00-0.05) 06/12/18 12:14 Home Medications Medication Instructions Recorded Aspirin [ASA -] 162 mg PO DAILY #30 tab.chew 06/13/18 Atorvastatin Ca [Lipitor] 80 mg PO HS #30 tablet 06/13/18 CTH: without abnormality - no bleed or infarct EKG: NSR, rate 66bpm, no St-T wave changes. qtc 446ms ASSESSMENT AND PLAN: 63 y/o M with PMH nephrolithiasis, chronic back pain, who presents to the ED c/ o generalized TRUJILLO, and L face and LUE numbness/tingling that started this AM. As per pt, his sx started at 9:30AM when he was at work. States that he was walking up the driveway at his office for a coffee break when he felt dizzy. #Acute TIA r/o CVA :will start asa 162mg qd, lipitor 80mg qd , symptoms resolved completely , carotids, brain MRI are within normal limit,no bleed , neuro dr. Wiley to follow with . # HLD: on Lipitor :cholesterol/fat controlled diet # Dizziness: IVF , most likely due to diarrhea # Diarrhea : resolved discharge the patient home.
== END 2018-06-13 14:45 | disposition home or self-care (01) ==
LOC: JER 11:17 → JERBED 13:58 → J4W 16:50
PROVIDERS: ADMIT Internal Medicine; ATTEND Internal Medicine
PROC: 3E033GC Introduction of Other Therapeutic Substance into Peripheral Vein, Percutaneous Approach (ICD-10-PCS; principal; 2018-06-12)
DX: G45.8 Other transient cerebral ischemic attacks and related syndromes (principal); E78.5 Hyperlipidemia, unspecified; R42 Dizziness and giddiness; R19.7 Diarrhea, unspecified
CPT/HCPCS: 36415; 70450-TC; 70551-TC; 80048; 80053; 81003; 82465; 82550; 82962; 83036; 83718; 83721; 83735; 84100; 84478; 84484; 85025; 85610; 85730; 86850; 86900; 86901; 93005; 93010; 93306-TC; 93880-TC; 96374; 97116-GP; 97161-GP; 99285-25; G0378; J7030; Q0162